=== PATIENT | female | born 1980 | race Caucasian/White ===

== ENCOUNTER → 2021-05-24 | Outpatient (CLI) | payer OTHER ==
--- NOTE | 2021-05-24 12:47 | RAD ---
HEPATOBILIARY SCAN WITH EJECTION FRACTION 05/24/2021 12:43 PM History: Reason: PANCREATITIS / Spl. Instructions: / History: ABD. PAIN X 8 YEARS Procedure: Serial static images are obtained of the liver and biliary system in the frontal projectio n following IV administration of 5.5 mCi of Technetium 99m Choletec. After filling of the gallbladd er a fat-containing nutritional supplement was administered orally and imaging over the gallbladder c ontinued. The gallbladder ejection fraction was calculated. Findings: There is prompt hepatic clearance of tracer from the blood pool. There is homogeneous distr ibution throughout the liver. The gallbladder ejection fraction measures 60% (normal gallbladder EF is 35% or greater). IMPRESSION: 1. The cystic duct and common bile duct are patent. Negative for acute cholecystitis. 2. The gallbladder ejection fraction is normal measuring 60% Electronically signed by: Isrrael Lynne MD (05/24/2021 12:44 PM) [id number]
== END ==
LOC: NM 09:14
PROVIDERS: ATTEND Internal Medicine Gastroenterology
DX: K85.90 Acute pancreatitis without necrosis or infection, unspecified (principal)
CPT/HCPCS: 78227; A9537